=== PATIENT | male | born 1980 | race Caucasian/White ===

== ENCOUNTER 2021-10-30 15:41 | Emergency (ER) | payer OTHER ==
[2021-10-30 15:47] VITALS: BP 114/69; PULSE 80; TEMP 98.3; BMI 27.4
== END 2021-10-30 16:12 | disposition home or self-care (01) ==
LOC: JERFT 15:41 → JER 15:41 → JERFT 16:12
DX: M71.21 Synovial cyst of popliteal space [Baker], right knee (principal)
CPT/HCPCS: 99282-25